=== PATIENT | male | born 1935 | race Caucasian/White ===

== ENCOUNTER 2021-08-17 12:24 | Inpatient (IN) ==
[2021-08-17 14:12] LABS: ABS Eosinophils 0.1 10^3/ul (0-0.6); ABS Lymphocytes 1.2 10^3/ul (1.0-4.8); ABS Monocytes 0.7 10^3/ul (0-0.8); ABS Neutrophils 5.8 10^3/ul (1.5-7.7); Eosinophil % 1.2 %; Hematocrit 38 % (42-52); Hemoglobin 12.8 g/dL (14.0-18.0); Lymphocyte % 15.1 %; Mean Corpuscular HGB Conc 34 g/dL (31-36); Mean Corpuscular Hemoglobin 31 pg (27-31); Mean Corpuscular Volume 91 fL (80-94); Mean Platelet Volume 8.1 fL (7.4-10.4); Nucleated Red Blood Cells % 0.1; Platelet Count 199 10^3/uL (150-450); Red Blood Count 4.17 10^6 /uL (4.18-5.48); Red Cell Distribution Width 14 % (10-15); White Blood Count 7.8 10^3/uL (3.5-10.8)
[2021-08-17 14:51] LABS: Albumin 4.1 g/dL (3.2-5.2); Albumin/Globulin Ratio 1.8 (1-3); Calcium 9.2 mg/dL (8.6-10.3); Globulin 2.3 g/dL (2-4); Magnesium 2.2 mg/dL (1.9-2.7); Potassium 4.7 mmol/L (3.5-5.0); Total Bilirubin 0.5 mg/dL (0.2-1.0); Total Protein 6.4 g/dL (6.4-8.9); eGFR CKD-EPI 45.3 (>60)
[2021-08-17] MEDS ORDERED: Iodixanol (CONTRAST) 320 MG/ML 100 ML SDV IV ONE (15:01)
[2021-08-17 15:06] LABS: TSH Ultra Thyroid Stim Horm 1.11 mcIU/mL (0.34-5.60)
[2021-08-17 15:41] LABS: High Sensitivity Troponin 1 Hr 6 pg/mL (<20)
[2021-08-17] MEDS ORDERED: levETIRAcetam 1000MG IVPREMIX 1,000 MG/100 ML BAG IVPB ONE (15:41)
[2021-08-17] MEDS ORDERED: Ondansetron 4 mg VIAL 2 MG/ML 2 ml VIAL IV PRN (16:54)
[2021-08-17 17:30] LABS: Urine Appearance Clear; Urine Bilirubin Negative (Negative); Urine Blood Negative (Negative); Urine Color Yellow; Urine Glucose Negative (Negative); Urine Ketones Negative (Negative); Urine Nitrite Negative (Negative); Urine Protein Negative (Negative); Urine Specific Gravity 1.015 (1.002-1.030); Urine Urobilinogen Negative (Negative)
[2021-08-17 17:37] LABS: Activated Partial Thrombo Time 30.3 seconds (26.0-38.0); INR 1.09 (0.86-1.15)
[2021-08-17 17:43] LABS: Urine Creatinine Concentration 80.24 mg/dL
[2021-08-17] MEDS ORDERED: niCARdipine 0.1MG/ML IVPREMIX 20 MG/200 ML BAG IV SCH (18:00)
[2021-08-17] MEDS: NS 0.9% 1000 ml BAG 1,000 ML IV SCH (19:32)
[2021-08-17] MEDS: levETIRAcetam 500 MG IVPREMIX 500 MG/100 ML BAG IV SCH (21:25)
[2021-08-18 04:45] LABS: ABS Basophils 0.1 10^3/ul (0-0.2); ABS Eosinophils 0.2 10^3/ul (0-0.6); ABS Lymphocytes 1.2 10^3/ul (1.0-4.8); ABS Monocytes 0.7 10^3/ul (0-0.8); ABS Neutrophils 4.8 10^3/ul (1.5-7.7); Eosinophil % 2.6 %; Hematocrit 39 % (42-52); Lymphocyte % 17.2 %; Mean Corpuscular HGB Conc 34 g/dL (31-36); Mean Corpuscular Hemoglobin 30 pg (27-31); Mean Corpuscular Volume 90 fL (80-94); Mean Platelet Volume 7.9 fL (7.4-10.4); Platelet Count 195 10^3/uL (150-450); Red Blood Count 4.27 10^6 /uL (4.18-5.48); Red Cell Distribution Width 14 % (10-15); White Blood Count 6.8 10^3/uL (3.5-10.8)
[2021-08-18 04:54] LABS: Activated Partial Thrombo Time 29.7 seconds (26.0-38.0); INR 1.12 (0.86-1.15)
[2021-08-18 05:18] LABS: Calcium 8.9 mg/dL (8.6-10.3); Potassium 4.4 mmol/L (3.5-5.0); eGFR CKD-EPI 55.2 (>60)
[2021-08-18] MEDS: levETIRAcetam 500 MG IVPREMIX 500 MG/100 ML BAG IV SCH ×2 (08:44→21:01)
[2021-08-18] MEDS: NS 0.9% 1000 ml BAG 1,000 ML IV SCH (08:45)
[2021-08-18] MEDS: Acetaminophen IV 1 GM/100ML 100 ML IV PRN ×2 (09:06→16:18)
[2021-08-18] MEDS ORDERED: Buffered Lidocaine 1% SYRIN 1 ml INTRADERM ONE (10:59)
[2021-08-18] MEDS ORDERED: Lactated Ringers 1000 ml BAG 1,000 ML IV SCH (11:00)
[2021-08-18] MEDS ORDERED: HYDROmorphone 1 MG/1 ML SYRINGE IV PRN (12:12)
[2021-08-18] MEDS ORDERED: Naloxone 0.4 mg VIAL 0.4 mg/ml 1 ml VIAL IV PRN (12:12)
[2021-08-18] MEDS ORDERED: Prochlorperazine 5 mg/ml 2 ml VIAL (10 mg) IV PRN (12:12)
[2021-08-18] MEDS ORDERED: Propofol 10 MG/ML 20 ML BTL ONE (12:15)
[2021-08-18] MEDS ORDERED: fentaNYL 250 mcg/5 ml 50 MCG/ML 5 ml VIAL (250 MCG) ONE (12:15)
[2021-08-18] MEDS ORDERED: Rocuronium 50 mg VIAL 10 mg/ml 5 ml VIAL (50 mg) ONE (12:15)
[2021-08-18] MEDS ORDERED: Lidocaine 2% PF 5 ML VIAL ONE (12:16)
[2021-08-18] MEDS ORDERED: Thrombin 5,000 UNITS(BOVINE) for Ultrasound Guided Pseudoaneursym ONE (12:26)
[2021-08-18] MEDS ORDERED: Lidocaine 1% w EPI 1:200,000 SDV 30 ML VIAL ONE (12:26)
[2021-08-18] MEDS ORDERED: Gelfoam 12-7 ADSORBABL SPONGE ONE (12:26)
[2021-08-18] MEDS ORDERED: Mannitol 25% (12.5 GM) 50 ML 12.5 GM/50 ML VIAL ONE (12:26)
[2021-08-18] MEDS ORDERED: Succinylcholine 200 mg VIAL 20 mg/ml 10 ml VIAL (200 mg) ONE (12:45)
[2021-08-18] MEDS ORDERED: Dexamethasone IV 4 MG/ML VIAL 1 ml VIAL ONE (13:21)
[2021-08-18] MEDS ORDERED: ceFAZolin VIAL VIAL ONE (13:21)
[2021-08-18] MEDS ORDERED: Gelfoam Sponge SIZE 100 SPONGE ONE (13:49)
[2021-08-18] MEDS ORDERED: Ondansetron 4 mg VIAL 2 MG/ML 2 ml VIAL ONE (14:23)
[2021-08-18] MEDS: LACTATED RINGERS 1000 ML BAG IV SCH (16:22)
[2021-08-18] MEDS ORDERED: Acetaminophen IV 1 GM/100ML 100 ML IV ONE (22:00)
[2021-08-19] MEDS: LACTATED RINGERS 1000 ML BAG IV SCH (01:59)
[2021-08-19 04:26] LABS: ABS Lymphocytes 0.9 10^3/ul (1.0-4.8); ABS Neutrophils 9.6 10^3/ul (1.5-7.7); Eosinophil % 0.4 %; Hematocrit 35 % (42-52); Hemoglobin 11.9 g/dL (14.0-18.0); Lymphocyte % 7.7 %; Mean Corpuscular HGB Conc 34 g/dL (31-36); Mean Corpuscular Hemoglobin 31 pg (27-31); Mean Corpuscular Volume 90 fL (80-94); Mean Platelet Volume 7.8 fL (7.4-10.4); Platelet Count 202 10^3/uL (150-450); Red Blood Count 3.92 10^6 /uL (4.18-5.48); Red Cell Distribution Width 13 % (10-15); White Blood Count 11.5 10^3/uL (3.5-10.8)
[2021-08-19 05:29] LABS: Blood Urea Nitrogen 25 mg/dL (6-24); CO2 Carbon Dioxide 20 mmol/L (22-32); Calcium 8.7 mg/dL (8.6-10.3); Chloride 109 mmol/L (101-111); Glucose 116 mg/dL (70-100); Sodium 137 mmol/L (135-145); eGFR CKD-EPI 54.2 (>60)
[2021-08-19 05:33] LABS: Anion Gap 8 mmol/L (2-11)
[2021-08-19] MEDS: Acetaminophen IV 1 GM/100ML 100 ML IV PRN ×2 (05:52→13:57)
[2021-08-19] MEDS ORDERED: Acetaminophen IV 1 GM/100ML 100 ML IV ONE (06:00)
[2021-08-19] MEDS: levETIRAcetam 500 MG IVPREMIX 500 MG/100 ML BAG IV SCH ×2 (08:53→21:12)
[2021-08-20 05:32] LABS: ABS Basophils 0.1 10^3/ul (0-0.2); ABS Eosinophils 0.1 10^3/ul (0-0.6); ABS Lymphocytes 1.1 10^3/ul (1.0-4.8); ABS Monocytes 1.1 10^3/ul (0-0.8); ABS Neutrophils 8.1 10^3/ul (1.5-7.7); Eosinophil % 1.2 %; Hematocrit 36 % (42-52); Hemoglobin 12.2 g/dL (14.0-18.0); Lymphocyte % 10.1 %; Mean Corpuscular HGB Conc 34 g/dL (31-36); Mean Corpuscular Hemoglobin 31 pg (27-31); Mean Corpuscular Volume 90 fL (80-94); Mean Platelet Volume 7.7 fL (7.4-10.4); Platelet Count 191 10^3/uL (150-450); Red Blood Count 3.95 10^6 /uL (4.18-5.48); Red Cell Distribution Width 14 % (10-15); White Blood Count 10.4 10^3/uL (3.5-10.8)
[2021-08-20 06:19] LABS: Calcium 8.8 mg/dL (8.6-10.3); Magnesium 1.7 mg/dL (1.9-2.7); Potassium 4.6 mmol/L (3.5-5.0); eGFR CKD-EPI 57.9 (>60)
[2021-08-20] MEDS ORDERED: Magnesium Sulfate IV 3 GM in NS 0.9% 100 ml BAG 100 ML IVPB ONE (07:11)
[2021-08-20] MEDS ORDERED: Magnesium Sulfate 2 GM IV (Premix) IVPB ONE (08:00)
[2021-08-20] MEDS: Acetaminophen IV 1 GM/100ML 100 ML IV PRN (08:04)
[2021-08-20] MEDS ORDERED: Magnesium Sulfate 1 GM IV 1 GM/100 ML BAG IV ONE (09:00)
[2021-08-20] MEDS: CMC:Pravastatin 20 mg TAB (NF) PO SCH (09:19)
[2021-08-20] MEDS ORDERED: ceFAZolin 2 GM in NS PREMIX 2 GM/100 ML BAG IVPB ONE (09:33)
[2021-08-20] MEDS: levETIRAcetam 500 MG IVPREMIX 500 MG/100 ML BAG IV SCH ×2 (09:36→20:41)
[2021-08-20] MEDS ORDERED: Lidocaine 1% w EPI 1:200,000 SDV 30 ML VIAL ONE (10:06)
[2021-08-20] MEDS ORDERED: Mannitol 25% (12.5 GM) 50 ML 12.5 GM/50 ML VIAL ONE (10:07)
[2021-08-20] MEDS ORDERED: Gelfoam 12-7 ADSORBABL SPONGE ONE (10:07)
[2021-08-20] MEDS ORDERED: Thrombin 5,000 UNITS 1 APPLIC KIT - topical use - TOPICAL ONE (10:07)
[2021-08-20] MEDS ORDERED: Gelfoam Sponge SIZE 100 SPONGE ONE (10:07)
[2021-08-20] MEDS ORDERED: Dexamethasone IV 4 MG/ML VIAL 1 ml VIAL ONE (10:32)
[2021-08-20] MEDS ORDERED: Lidocaine 2% PF 5 ML VIAL ONE (10:32)
[2021-08-20] MEDS ORDERED: Rocuronium 50 mg VIAL 10 mg/ml 5 ml VIAL (50 mg) ONE (10:32)
[2021-08-20] MEDS ORDERED: HYDROmorphone 0.5 MG/0.5 ML SYRINGE ONE (10:33)
[2021-08-20] MEDS ORDERED: Propofol 10 MG/ML 20 ML BTL ONE (10:33)
[2021-08-20] MEDS ORDERED: EPHEDrine (Pressors) 50 MG/ML VIAL ONE (11:52)
[2021-08-20] MEDS ORDERED: Acetaminophen IV 1 GM/100ML 100 ML IV PRN (21:56)
[2021-08-21] MEDS: LACTATED RINGERS 1000 ML BAG IV SCH ×2 (00:54→10:32)
[2021-08-21] MEDS: Lidocaine PATCH 5% PATCH TRANSDERM SCH (04:23)
[2021-08-21 04:45] LABS: ABS Eosinophils 0.1 10^3/ul (0-0.6); ABS Lymphocytes 1.3 10^3/ul (1.0-4.8); ABS Monocytes 1.3 10^3/ul (0-0.8); ABS Neutrophils 8.7 10^3/ul (1.5-7.7); Hematocrit 32 % (42-52); Hemoglobin 11.1 g/dL (14.0-18.0); Lymphocyte % 11.4 %; Mean Corpuscular HGB Conc 35 g/dL (31-36); Mean Corpuscular Hemoglobin 31 pg (27-31); Mean Corpuscular Volume 90 fL (80-94); Mean Platelet Volume 7.8 fL (7.4-10.4); Platelet Count 178 10^3/uL (150-450); Red Blood Count 3.54 10^6 /uL (4.18-5.48); Red Cell Distribution Width 14 % (10-15); White Blood Count 11.5 10^3/uL (3.5-10.8)
[2021-08-21 05:11] LABS: Calcium 8.3 mg/dL (8.6-10.3); Potassium 4.5 mmol/L (3.5-5.0); eGFR CKD-EPI 55.7 (>60)
[2021-08-21] MEDS ORDERED: Acetaminophen IV 1 GM/100ML 100 ML IV ONE (05:14)
[2021-08-21] MEDS: levETIRAcetam 500 MG IVPREMIX 500 MG/100 ML BAG IV SCH ×2 (08:26→19:44)
[2021-08-21] MEDS: CMC:Pravastatin 20 mg TAB (NF) PO SCH (08:26)
[2021-08-21] MEDS ORDERED: Acetaminophen IV 1 GM/100ML 100 ML IV PRN (13:00)
[2021-08-21] MEDS: Acetaminophen IV 1 GM/100ML 100 ML IV PRN (19:46)
[2021-08-22] MEDS: Acetaminophen IV 1 GM/100ML 100 ML IV PRN ×2 (04:26→12:37)
[2021-08-22 04:28] LABS: ABS Basophils 0.1 10^3/ul (0-0.2); ABS Eosinophils 0.3 10^3/ul (0-0.6); ABS Lymphocytes 1.1 10^3/ul (1.0-4.8); ABS Neutrophils 6.9 10^3/ul (1.5-7.7); Eosinophil % 3.2 %; Hematocrit 32 % (42-52); Hemoglobin 10.9 g/dL (14.0-18.0); Mean Corpuscular HGB Conc 34 g/dL (31-36); Mean Corpuscular Hemoglobin 31 pg (27-31); Mean Corpuscular Volume 90 fL (80-94); Mean Platelet Volume 7.7 fL (7.4-10.4); Platelet Count 177 10^3/uL (150-450); Red Cell Distribution Width 14 % (10-15); White Blood Count 9.3 10^3/uL (3.5-10.8)
[2021-08-22 04:59] LABS: Calcium 8.2 mg/dL (8.6-10.3); Potassium 4.6 mmol/L (3.5-5.0); eGFR CKD-EPI 54.7 (>60)
[2021-08-22] MEDS: Lidocaine PATCH 5% PATCH TRANSDERM SCH (08:57)
[2021-08-22] MEDS: CMC:Pravastatin 20 mg TAB (NF) PO SCH (08:57)
[2021-08-22] MEDS ORDERED: Senna TAB 8.6 mg TAB PO PRN (12:49)
[2021-08-22] MEDS: Polyethylene Glycol 3350 17 GM PACKET PO PRN (13:01)
[2021-08-22] MEDS: Magnesium Hydroxide LIQ 30 ML UDC PO PRN (13:01)
[2021-08-23 04:40] LABS: ABS Basophils 0.1 10^3/ul (0-0.2); ABS Eosinophils 0.2 10^3/ul (0-0.6); ABS Lymphocytes 1.2 10^3/ul (1.0-4.8); ABS Neutrophils 6.6 10^3/ul (1.5-7.7); Eosinophil % 2.6 %; Hematocrit 34 % (42-52); Hemoglobin 11.5 g/dL (14.0-18.0); Lymphocyte % 13.2 %; Mean Corpuscular HGB Conc 34 g/dL (31-36); Mean Corpuscular Hemoglobin 31 pg (27-31); Mean Corpuscular Volume 90 fL (80-94); Mean Platelet Volume 7.6 fL (7.4-10.4); Platelet Count 227 10^3/uL (150-450); Red Blood Count 3.72 10^6 /uL (4.18-5.48); Red Cell Distribution Width 13 % (10-15); White Blood Count 9.1 10^3/uL (3.5-10.8)
[2021-08-23 05:05] LABS: Calcium 8.6 mg/dL (8.6-10.3); Potassium 4.4 mmol/L (3.5-5.0); eGFR CKD-EPI 58.5 (>60)
[2021-08-23] MEDS: Lidocaine PATCH 5% PATCH TRANSDERM SCH (10:00)
[2021-08-23] MEDS: CMC:Pravastatin 20 mg TAB (NF) PO SCH (10:03)
[2021-08-24 06:57] LABS: ABS Basophils 0.1 10^3/ul (0-0.2); ABS Eosinophils 0.3 10^3/ul (0-0.6); Eosinophil % 3.3 %; Hematocrit 36 % (42-52); Hemoglobin 12.3 g/dL (14.0-18.0); Lymphocyte % 12.3 %; Mean Corpuscular HGB Conc 35 g/dL (31-36); Mean Corpuscular Hemoglobin 31 pg (27-31); Mean Corpuscular Volume 90 fL (80-94); Mean Platelet Volume 7.3 fL (7.4-10.4); Platelet Count 225 10^3/uL (150-450); Red Blood Count 3.97 10^6 /uL (4.18-5.48); Red Cell Distribution Width 13 % (10-15); White Blood Count 8.3 10^3/uL (3.5-10.8)
[2021-08-24 07:48] LABS: Calcium 8.8 mg/dL (8.6-10.3); Magnesium 2.2 mg/dL (1.9-2.7); Potassium 4.3 mmol/L (3.5-5.0)
[2021-08-24] MEDS: Lidocaine PATCH 5% PATCH TRANSDERM SCH (09:26)
[2021-08-24] MEDS: CMC:Pravastatin 20 mg TAB (NF) PO SCH (09:28)
[2021-08-24] MEDS: Polyethylene Glycol 3350 17 GM PACKET PO PRN (16:05)
[2021-08-25] MEDS ORDERED: Acetaminophen IV 1 GM/100ML 100 ML IV ONE (01:26)
[2021-08-25 05:32] LABS: ABS Basophils 0.1 10^3/ul (0-0.2); ABS Eosinophils 0.2 10^3/ul (0-0.6); ABS Monocytes 1.1 10^3/ul (0-0.8); ABS Neutrophils 7.3 10^3/ul (1.5-7.7); Eosinophil % 2.2 %; Hematocrit 31 % (42-52); Hemoglobin 10.6 g/dL (14.0-18.0); Lymphocyte % 10.4 %; Mean Corpuscular HGB Conc 34 g/dL (31-36); Mean Corpuscular Hemoglobin 31 pg (27-31); Mean Corpuscular Volume 90 fL (80-94); Mean Platelet Volume 7.2 fL (7.4-10.4); Platelet Count 243 10^3/uL (150-450); Red Blood Count 3.46 10^6 /uL (4.18-5.48); Red Cell Distribution Width 13 % (10-15); White Blood Count 9.7 10^3/uL (3.5-10.8)
[2021-08-25 06:49] LABS: Calcium 8.5 mg/dL (8.6-10.3); Potassium 4.6 mmol/L (3.5-5.0); eGFR CKD-EPI 49.6 (>60)
[2021-08-25] MEDS: CMC:Pravastatin 20 mg TAB (NF) PO SCH (08:28)
[2021-08-25] MEDS: Lidocaine PATCH 5% PATCH TRANSDERM SCH (08:29)
[2021-08-26] MEDS ORDERED: Lactated Ringers 1000 ml BAG 1,000 ML IV SCH (08:00)
[2021-08-26] MEDS ORDERED: Magnesium Hydroxide LIQ 30 ML UDC PO ONE (08:06)
[2021-08-26] MEDS: Lidocaine PATCH 5% PATCH TRANSDERM SCH (08:56)
[2021-08-26] MEDS: CMC:Pravastatin 20 mg TAB (NF) PO SCH (08:57)
[2021-08-27 08:01] LABS: Hematocrit 33 % (42-52); Hemoglobin 11.1 g/dL (14.0-18.0); Mean Corpuscular HGB Conc 34 g/dL (31-36); Mean Corpuscular Hemoglobin 30 pg (27-31); Mean Corpuscular Volume 89 fL (80-94); Mean Platelet Volume 7.3 fL (7.4-10.4); Platelet Count 308 10^3/uL (150-450); Red Blood Count 3.67 10^6 /uL (4.18-5.48); Red Cell Distribution Width 13 % (10-15); White Blood Count 9.9 10^3/uL (3.5-10.8)
[2021-08-27 08:27] LABS: Calcium 8.8 mg/dL (8.6-10.3); Magnesium 2.4 mg/dL (1.9-2.7); Potassium 4.9 mmol/L (3.5-5.0); eGFR CKD-EPI 52.7 (>60)
[2021-08-27] MEDS: CMC:Pravastatin 20 mg TAB (NF) PO SCH (13:14)
[2021-08-27] MEDS: Lidocaine PATCH 5% PATCH TRANSDERM SCH (13:14)
[2021-08-28 05:44] LABS: Hematocrit 32 % (42-52); Hemoglobin 10.9 g/dL (14.0-18.0); Mean Corpuscular HGB Conc 34 g/dL (31-36); Mean Corpuscular Hemoglobin 30 pg (27-31); Mean Corpuscular Volume 90 fL (80-94); Mean Platelet Volume 7.3 fL (7.4-10.4); Platelet Count 303 10^3/uL (150-450); Red Blood Count 3.59 10^6 /uL (4.18-5.48); Red Cell Distribution Width 13 % (10-15); White Blood Count 8.8 10^3/uL (3.5-10.8)
[2021-08-28 06:14] LABS: Calcium 8.6 mg/dL (8.6-10.3); Magnesium 2.5 mg/dL (1.9-2.7); eGFR CKD-EPI 49.1 (>60)
[2021-08-28] MEDS ORDERED: Lactated Ringers 1000 ml BAG 1,000 ML IV SCH ×2 (08:00→16:00)
[2021-08-28] MEDS: CMC:Pravastatin 20 mg TAB (NF) PO SCH (09:32)
[2021-08-28] MEDS: Lidocaine PATCH 5% PATCH TRANSDERM SCH (09:35)
[2021-08-29 06:21] LABS: Hematocrit 31 % (42-52); Hemoglobin 10.8 g/dL (14.0-18.0); Mean Corpuscular HGB Conc 35 g/dL (31-36); Mean Corpuscular Hemoglobin 31 pg (27-31); Mean Corpuscular Volume 88 fL (80-94); Mean Platelet Volume 7.1 fL (7.4-10.4); Platelet Count 307 10^3/uL (150-450); Red Blood Count 3.53 10^6 /uL (4.18-5.48); Red Cell Distribution Width 13 % (10-15); White Blood Count 8.8 10^3/uL (3.5-10.8)
[2021-08-29 06:39] LABS: Calcium 8.9 mg/dL (8.6-10.3); Magnesium 2.3 mg/dL (1.9-2.7); eGFR CKD-EPI 54.2 (>60)
[2021-08-29] MEDS: CMC:Pravastatin 20 mg TAB (NF) PO SCH (09:25)
[2021-08-29] MEDS: Lidocaine PATCH 5% PATCH TRANSDERM SCH (09:25)
[2021-08-29] MEDS: Polyethylene Glycol 3350 17 GM PACKET PO PRN (09:27)
[2021-08-29] MEDS: Magnesium Hydroxide LIQ 30 ML UDC PO PRN (09:27)
[2021-08-29] MEDS ORDERED: Lactated Ringers 1000 ml BAG 1,000 ML IV SCH (11:00)
[2021-08-30] MEDS ORDERED: Morphine 2 MG/ML SYRINGE IV PRN ×2 (04:27→14:51)
[2021-08-30] MEDS ORDERED: Morphine 4 MG/ML VIAL (1 ml) IV PRN (04:28)
[2021-08-30 06:03] LABS: Hematocrit 34 % (42-52); Hemoglobin 11.3 g/dL (14.0-18.0); Mean Corpuscular HGB Conc 34 g/dL (31-36); Mean Corpuscular Hemoglobin 30 pg (27-31); Mean Corpuscular Volume 89 fL (80-94); Mean Platelet Volume 7.2 fL (7.4-10.4); Platelet Count 313 10^3/uL (150-450); Red Blood Count 3.78 10^6 /uL (4.18-5.48); Red Cell Distribution Width 14 % (10-15); White Blood Count 9.1 10^3/uL (3.5-10.8)
[2021-08-30 06:40] LABS: eGFR CKD-EPI 52.2 (>60)
[2021-08-30 06:49] LABS: Potassium 5.5 mmol/L (3.5-5.0)
[2021-08-30] MEDS ORDERED: SODIUM ZIRCONIUM CYCLOSILICATE 5 GM PACKET PO ONE (07:08)
[2021-08-30] MEDS ORDERED: Dextrose 50% Syringe 50 ml 25 GM/50 ML SYRINGE IV PUSH ONE (07:10)
[2021-08-30] MEDS ORDERED: SODIUM ZIRCONIUM CYCLOSILICATE 5 GM PACKET PO SCH (08:00)
[2021-08-30] MEDS ORDERED: levETIRAcetam 500 MG IVPREMIX 500 MG/100 ML BAG IV ONE (09:00)
[2021-08-30] MEDS: Lidocaine PATCH 5% PATCH TRANSDERM SCH (09:04)
[2021-08-30] MEDS: CMC:Pravastatin 20 mg TAB (NF) PO SCH (09:05)
[2021-08-30] MEDS ORDERED: Propofol 10 MG/ML 20 ML BTL ONE (09:51)
[2021-08-30] MEDS ORDERED: Ondansetron 4 mg VIAL 2 MG/ML 2 ml VIAL ONE (09:51)
[2021-08-30] MEDS ORDERED: fentaNYL 100 mcg/2 ml 50 MCG/ML VIAL ONE ×2 (09:51→13:18)
[2021-08-30] MEDS ORDERED: Dexamethasone IV 4 MG/ML VIAL 1 ml VIAL ONE (09:51)
[2021-08-30] MEDS ORDERED: Rocuronium 50 mg VIAL 10 mg/ml 5 ml VIAL (50 mg) ONE (09:51)
[2021-08-30] MEDS ORDERED: Lidocaine 2% PF 5 ML VIAL ONE (09:51)
[2021-08-30] MEDS ORDERED: Midazolam 2 mg/2 ml VIAL 1 mg/ml 2 ml VIAL (2 mg) ONE (09:52)
[2021-08-30] MEDS ORDERED: Mannitol 25% (12.5 GM) 50 ML 12.5 GM/50 ML VIAL ONE ×2 (09:54→09:56)
[2021-08-30] MEDS ORDERED: Buffered Lidocaine 1% SYRIN 1 ml INTRADERM ONE (09:57)
[2021-08-30] MEDS ORDERED: ceFAZolin 2 GM PREMIX 2 GM/50 ML BAG ONE (09:58)
[2021-08-30] MEDS ORDERED: Phenylephrine 40 mcg/mL 10mL (400mcg) SYRINGE ONE (09:59)
[2021-08-30] MEDS ORDERED: Lidocaine 1% w EPI 1:100,000 MDV 20 ML VIAL ONE (10:02)
[2021-08-30] MEDS ORDERED: Thrombin 5,000 UNITS 1 APPLIC KIT - topical use - TOPICAL ONE (10:03)
[2021-08-30 10:36] LABS: Calcium 8.9 mg/dL (8.6-10.3)
[2021-08-30 10:41] LABS: eGFR CKD-EPI 55.7 (>60)
[2021-08-30 10:51] LABS: Potassium 5.3 mmol/L (3.5-5.0)
[2021-08-30] MEDS ORDERED: Phenylephrine IV 10 MG/ML 1 ml VIAL ONE (11:07)
[2021-08-30] MEDS ORDERED: Sugammadex 500 MG/5 ML 5 ml VIAL IV PUSH ONE (11:21)
[2021-08-30] MEDS ORDERED: Acetaminophen IV 1 GM/100ML 100 ML IV ONE ×3 (11:29→23:30)
[2021-08-30] MEDS ORDERED: Naloxone 0.4 mg VIAL 0.4 mg/ml 1 ml VIAL IV PRN (11:29)
[2021-08-30] MEDS ORDERED: Ondansetron 4 mg VIAL 2 MG/ML 2 ml VIAL IV PRN (11:29)
[2021-08-30] MEDS ORDERED: fentaNYL 100 mcg/2 ml 50 MCG/ML VIAL IV PRN (11:29)
[2021-08-30] MEDS ORDERED: Gelfoam 12-7 ADSORBABL SPONGE ONE (11:32)
[2021-08-30] MEDS: levETIRAcetam 500 MG/100 ML IV SCH (20:52)
[2021-08-31 04:28] LABS: ABS Lymphocytes 0.7 10^3/ul (1.0-4.8); ABS Neutrophils 7.5 10^3/ul (1.5-7.7); Eosinophil % 0.1 %; Hematocrit 33 % (42-52); Hemoglobin 11.2 g/dL (14.0-18.0); Lymphocyte % 7.5 %; Mean Corpuscular HGB Conc 34 g/dL (31-36); Mean Corpuscular Hemoglobin 30 pg (27-31); Mean Corpuscular Volume 89 fL (80-94); Mean Platelet Volume 6.9 fL (7.4-10.4); Nucleated Red Blood Cells % 0.1; Platelet Count 301 10^3/uL (150-450); Red Blood Count 3.73 10^6 /uL (4.18-5.48); Red Cell Distribution Width 13 % (10-15); White Blood Count 9.1 10^3/uL (3.5-10.8)
[2021-08-31 04:52] LABS: Calcium 8.7 mg/dL (8.6-10.3); Magnesium 2.4 mg/dL (1.9-2.7); eGFR CKD-EPI 49.1 (>60)
[2021-08-31 04:56] LABS: Potassium 5.2 mmol/L (3.5-5.0)
[2021-08-31] MEDS ORDERED: Acetaminophen IV 1 GM/100ML 100 ML IV SCH (08:00)
[2021-08-31] MEDS: levETIRAcetam 500 MG/100 ML IV SCH ×2 (09:34→20:46)
[2021-08-31] MEDS: CMC:Pravastatin 20 mg TAB (NF) PO SCH (11:37)
[2021-08-31] MEDS: Lidocaine PATCH 5% PATCH TRANSDERM SCH (14:55)
[2021-08-31] MEDS ORDERED: Patiromer POWDER 8.4 GM PAK PO ONE (15:49)
[2021-09-01 05:24] LABS: ABS Basophils 0.1 10^3/ul (0-0.2); ABS Eosinophils 0.1 10^3/ul (0-0.6); ABS Monocytes 0.8 10^3/ul (0-0.8); ABS Neutrophils 8.4 10^3/ul (1.5-7.7); Eosinophil % 0.9 %; Hematocrit 31 % (42-52); Hemoglobin 10.8 g/dL (14.0-18.0); Lymphocyte % 9.3 %; Mean Corpuscular HGB Conc 35 g/dL (31-36); Mean Corpuscular Hemoglobin 31 pg (27-31); Mean Corpuscular Volume 89 fL (80-94); Mean Platelet Volume 6.9 fL (7.4-10.4); Platelet Count 294 10^3/uL (150-450); Red Blood Count 3.52 10^6 /uL (4.18-5.48); Red Cell Distribution Width 13 % (10-15); White Blood Count 10.3 10^3/uL (3.5-10.8)
[2021-09-01 06:15] LABS: Albumin 3.2 g/dL (3.2-5.2); Albumin/Globulin Ratio 1.2 (1-3); Calcium 8.7 mg/dL (8.6-10.3); Globulin 2.6 g/dL (2-4); Magnesium 2.2 mg/dL (1.9-2.7); Potassium 4.6 mmol/L (3.5-5.0); Total Bilirubin 0.4 mg/dL (0.2-1.0); Total Protein 5.8 g/dL (6.4-8.9); eGFR CKD-EPI 53.2 (>60)
[2021-09-01] MEDS: Lidocaine PATCH 5% PATCH TRANSDERM SCH (08:06)
[2021-09-01] MEDS: levETIRAcetam 500 MG/100 ML IV SCH (08:06)
[2021-09-01] MEDS: CMC:Pravastatin 20 mg TAB (NF) PO SCH (08:06)
[2021-09-01 09:33] LABS: Urine Appearance Clear; Urine Bilirubin Negative (Negative); Urine Blood Negative (Negative); Urine Color Yellow; Urine Glucose Negative (Negative); Urine Ketones Negative (Negative); Urine Nitrite Negative (Negative); Urine Protein Negative (Negative); Urine Specific Gravity 1.013 (1.002-1.030); Urine Urobilinogen Negative (Negative)
[2021-09-01 15:28] LABS: C Reactive Protein 84.26 mg/L (<8.01)
[2021-09-02] MEDS: CMC:Pravastatin 20 mg TAB (NF) PO SCH (09:35)
[2021-09-03 05:17] LABS: ABS Eosinophils 0.2 10^3/ul (0-0.6); ABS Lymphocytes 1.2 10^3/ul (1.0-4.8); ABS Neutrophils 5.7 10^3/ul (1.5-7.7); Eosinophil % 2.1 %; Hematocrit 32 % (42-52); Hemoglobin 10.7 g/dL (14.0-18.0); Lymphocyte % 15.3 %; Mean Corpuscular HGB Conc 34 g/dL (31-36); Mean Corpuscular Hemoglobin 30 pg (27-31); Mean Corpuscular Volume 88 fL (80-94); Mean Platelet Volume 7.3 fL (7.4-10.4); Nucleated Red Blood Cells % 0.1; Platelet Count 312 10^3/uL (150-450); Red Cell Distribution Width 13 % (10-15); White Blood Count 8.2 10^3/uL (3.5-10.8)
[2021-09-03 05:36] LABS: Calcium 8.6 mg/dL (8.6-10.3); Potassium 4.3 mmol/L (3.5-5.0); eGFR CKD-EPI 50.4 (>60)
[2021-09-03] MEDS: CMC:Pravastatin 20 mg TAB (NF) PO SCH (09:05)
[2021-09-04 07:23] VITALS: BP 114/64
[2021-09-04] MEDS: CMC:Pravastatin 20 mg TAB (NF) PO SCH (08:48)
== END 2021-09-04 10:10 | DRG 25 ==
LOC: ED 12:24 → ICU 12:32 → SUATTDRO 16:54 → EDHOLD 16:54 → ICU 20:44 → SSU 08-25 15:28 → ICU 08-30 14:35 → SSU 09-01 17:56
PROVIDERS: ADMIT Surgery Surgical Critical Care; ATTEND Internal Medicine